=== PATIENT | female | born 1995 | race African-American/Black ===

== ENCOUNTER → 2020-02-28 | Outpatient (CLI) | payer OTHER ==
--- NOTE | 2020-02-28 13:31 | WOMENS IMAGING REPORT ---
EXAM DESCRIPTION: U/S EXTREMITY NONVASCULAR LTD IMAGES COMPLETED DATE/TIME: 02/28/2020 12:56 pm REASON FOR STUDY: N63.31 UNSPECIFIED LUMP IN AXILLARY TAIL OF THE RIGHT BREAST N63.31 UNSPECIFIED L UMP IN AXILLARY TAIL OF THE RIGHT BREAST N64.4 MASTODYNIA N64.3 GALACTORRHEA NOT ASSOCIATED WITH [facility] ILDBIRTH COMPARISON: None. TECHNIQUE: Dynamic and static grayscale images acquired of the localized site of clinical concern an d recorded on PACS. Additional selected color Doppler and spectral images recorded. SITE OF CONCERN: Right humerus and axilla. LIMITATIONS: None. FINDINGS: Small physiologic lymph node in the axilla. Maximum diameter 8 mm. No suspicious finding s. IMPRESSION: Small physiologic lymph node. TECHNICAL DOCUMENTATION: JOB ID: [id number] 2010 [employer]- All Rights Reserved Reading location - IP/workstation name: [email or web address]
--- NOTE | 2020-02-28 13:32 | WOMENS IMAGING REPORT ---
EXAM DESCRIPTION: U/S BREAST UNILAT LIMITED IMAGES COMPLETED DATE/TIME: 02/28/2020 12:56 pm REASON FOR STUDY: N63.31 UNSPECIFIED LUMP IN AXILLARY TAIL OF THE RIGHT BREAST N64.4 MASTODYN; N64.3 GALACTORRHEA NOT ASSOCIATED WITH CHILDBIRTH- LEFT N63.31 UNSPECIFIED LUMP IN AXILLARY TAIL OF THE R IGHT BREAST N64.4 MASTODYNIA N64.3 GALACTORRHEA NOT ASSOCIATED WITH CHILDBIRTH COMPARISON: None. TECHNIQUE: Real-time and static grayscale imaging performed of the right and left breast targeted to the area of clinical/mammographic concern. Selected color Doppler images recorded. LIMITATIONS: None. FINDINGS: MASS: No mass identified. Normal glandular tissue. OTHER: No other significant finding. IMPRESSION: No suspicious findings detected by ultrasound. BIRAD: Negative. RECOMMENDATION: RECOMMENDED FOLLOW-UP: Follow-up as clinically indicated. COMMENT: The [employer] ([employer]) has developed recommendations for screening MRI of the breasts in certain patient populations, to be used in conjunction with mammography. Breast MRI s urveillance may be appropriate for women with more than 20% lifetime risk of developing breast cancer as determined by genetic testing, significant family history of the disease, or history of mantle r adiation for Hodgkins Disease. [employer] Practice Guidelines 2008. TECHNICAL DOCUMENTATION: JOB ID: [id number] 2010 [employer]- All Rights Reserved Reading location - IP/workstation name: [email or web address]
--- NOTE | 2020-02-28 13:32 | WOMENS IMAGING REPORT ---
EXAM DESCRIPTION: U/S BREAST UNILAT LIMITED IMAGES COMPLETED DATE/TIME: 02/28/2020 12:56 pm REASON FOR STUDY: N63.31 UNSPECIFIED LUMP IN AXILLARY TAIL OF THE RIGHT BREAST N64.4 MASTODYN; N64.3 GALACTORRHEA NOT ASSOCIATED WITH CHILDBIRTH- LEFT N63.31 UNSPECIFIED LUMP IN AXILLARY TAIL OF THE R IGHT BREAST N64.4 MASTODYNIA N64.3 GALACTORRHEA NOT ASSOCIATED WITH CHILDBIRTH COMPARISON: None. TECHNIQUE: Real-time and static grayscale imaging performed of the right and left breast targeted to the area of clinical/mammographic concern. Selected color Doppler images recorded. LIMITATIONS: None. FINDINGS: MASS: No mass identified. Normal glandular tissue. OTHER: No other significant finding. IMPRESSION: No suspicious findings detected by ultrasound. BIRAD: Negative. RECOMMENDATION: RECOMMENDED FOLLOW-UP: Follow-up as clinically indicated. COMMENT: The [employer] ([employer]) has developed recommendations for screening MRI of the breasts in certain patient populations, to be used in conjunction with mammography. Breast MRI s urveillance may be appropriate for women with more than 20% lifetime risk of developing breast cancer as determined by genetic testing, significant family history of the disease, or history of mantle r adiation for Hodgkins Disease. [employer] Practice Guidelines 2008. TECHNICAL DOCUMENTATION: JOB ID: [id number] 2010 [employer]- All Rights Reserved Reading location - IP/workstation name: [email or web address]
== END ==
LOC: WI 11:00
PROVIDERS: ATTEND Physician Assistant
DX: N63.31 Unspecified lump in axillary tail of the right breast (principal); N64.4 Mastodynia; N64.3 Galactorrhea not associated with childbirth
CPT/HCPCS: 76642; 76882